=== PATIENT | male | born 1955 | race Caucasian/White ===

== ENCOUNTER 2022-10-06 15:01 | Inpatient (IN) | payer MEDICARE ==
[~2022-10-06] VITALS: Ht 177.8 cm; Wt 78.2 kg
[2022-10-06 15:51] LABS: BASOPHILS % (AUTO) 0.4 % (0.0-5.0); EOSINOPHILS % (AUTO) 0.2 % (0.0-8.0); HEMATOCRIT 26.9 % (42-54); LYMPHOCYTES % (AUTO) 2.8 % (21.0-51.0); MEAN CORPUSCULAR HEMOGLOBIN 33.1 pg (27.0-33.0); MEAN CORPUSCULAR VOLUME 103.5 fL (79-99); MONOCYTES % (AUTO) 7.7 % (3.0-13.0); NEUTROPHILS % (AUTO) 88.3 % (40.0-77.0); PLATELET COUNT (AUTO) 261 K/uL (130-400); RED CELL DISTRIBUTION WIDTH 23.6 % (11.0-15.5); WHITE BLOOD COUNT (AUTO) 13.7 K/uL (4.8-10.8)
[2022-10-06 16:09] LABS: CREATININE 1.9 mg/dL (0.5-1.5); POTASSIUM 5.8 mmol/L (3.5-5.1)
[2022-10-06 16:16] LABS: ALBUMIN 1.7 g/dL (3.5-5.0); TOTAL PROTEIN, SERUM 6.4 g/dL (6.0-8.3)
[2022-10-06] MEDS ORDERED: NA ZIRCON CYCLOSIL(LOKELMA 10GM) PO ONE (18:00)
[2022-10-06] MEDS ORDERED: PHARMACY COMMUNICATION MISC SCH (18:00)
[2022-10-06] MEDS ORDERED: CALCIUM GLUC 1GM/10ML VIAL IV SCH (18:00)
[2022-10-06] MEDS ORDERED: ONDANSETRON 4MG INJ IVP PRN (18:00)
[2022-10-06] MEDS ORDERED: THIAMINE HCL 100 MG/ML 2ML VIAL IVP SCH (18:30)
[2022-10-06] MEDS ORDERED: COMPOUND PO MISCELLANEOUS 1 EACH MISC MISC PRN (18:30)
[2022-10-06] MEDS: MEROPENEM 1 GM VIAL IVP SCH (18:32)
[2022-10-06] MEDS: 0.9%NACL 1000ML 1,000 ML IV SCH (18:33)
[2022-10-06 18:36] LABS: INR 1.32 (0.85-1.15); PROTHROMBIN TIME 14.2 SEC (9.6-11.6)
[2022-10-06 18:37] LABS: PARTIAL THROMBOPLASTIN TIME 34.5 SEC (26.3-35.5)
[2022-10-06] MEDS: VANCOMYCIN 250MG/5ML ORAL SOLUTION 40ML PO SCH ×2 (18:38)
[2022-10-06 18:44] LABS: CRP QUANTITATIVE 129.9 mg/L (0.00-9.0)
[2022-10-06 20:25] LABS: MAGNESIUM 2.3 mg/dL (1.80-2.40); PHOSPHORUS 6.3 mg/dL (2.5-4.9)
[2022-10-06] MEDS: SUCRALFATE 1 GM TABLET PO SCH (21:51)
[2022-10-06 22:01] LABS: APPEARANCE,URINE SL CLOUDY (CLEAR); BILIRUBIN,URINE MODERATE mg/dL (NEGATIVE); COLOR,URINE AMBER (YELLOW); GLUCOSE, URINE (UA) NEGATIVE (NEGATIVE); KETONES,URINE 5 mg/dL (NEGATIVE); LEUKOCYTE ESTERASE ,URINE NEGATIVE Leu/uL (NEGATIVE); NITRATE,URINE POSITIVE (NEGATIVE); OCCULT BLOOD,URINE NEGATIVE (NEGATIVE); PH,URINE 5.5 (5.0-8.0); PROTEIN,URINE TRACE mg/dL (NEGATIVE); UROBILINOGEN,URINE 0.2 mg/dL (0.2-1.0)
[2022-10-06 22:03] LABS: CREATININE,URINE RANDOM 255 mg/dL (30-135); SODIUM,URINE RANDOM < 14 mmol/l (40-220)
[2022-10-06 22:08] LABS: BACTERIA,URINE RARE /HPF (None Seen); MUCUS,URINE RARE LPF (None Seen); SQUAMOUS EPITHELIAL CELL,UR RARE /HPF (0-2)
[2022-10-06 22:27] VITALS: BP 93/61
[2022-10-06 22:41] LABS: POTASSIUM 5.8 mmol/L (3.5-5.1)
[2022-10-06] MEDS ORDERED: LORA10TA60 PO (23:06)
[2022-10-06] MEDS ORDERED: METO-408 PO (23:06)
[2022-10-06] MEDS ORDERED: AMYL1CAP63 PO (23:06)
[2022-10-06] MEDS ORDERED: PSYL0.4C2 PO (23:11)
[2022-10-06] MEDS ORDERED: ESCI20TA38 PO (23:11)
[2022-10-06] MEDS ORDERED: APIX5TAB PO (23:11)
[2022-10-06] MEDS ORDERED: MORP100S6 PO (23:11)
[2022-10-06] MEDS ORDERED: CEFT2VIA12 IVPB (23:15)
[2022-10-06] MEDS ORDERED: MORP15TA9 PO (23:15)
[2022-10-06] MEDS ORDERED: VANC125C6 PO (23:15)
[2022-10-07] MEDS: VANCOMYCIN 250MG/5ML ORAL SOLUTION 40ML PO SCH ×8 (00:57→16:57)
[2022-10-07 03:14] VITALS: BP 94/65
[2022-10-07 05:13] LABS: BASOPHILS % (AUTO) 0.4 % (0.0-5.0); EOSINOPHILS % (AUTO) 0.5 % (0.0-8.0); LYMPHOCYTES % (AUTO) 2.8 % (21.0-51.0); MEAN CORPUSCULAR HEMOGLOBIN 33.8 pg (27.0-33.0); MEAN CORPUSCULAR HGB CONC 32.1 g/dL (32.0-36.0); MEAN CORPUSCULAR VOLUME 105.3 fL (79-99); NEUTROPHILS % (AUTO) 87.5 % (40.0-77.0); PLATELET COUNT (AUTO) 224 K/uL (130-400); RED BLOOD CELL COUNT(AUTO) 2.28 MIL/uL (4.50-6.20); RED CELL DISTRIBUTION WIDTH 23.7 % (11.0-15.5); WHITE BLOOD COUNT (AUTO) 15.5 K/uL (4.8-10.8)
[2022-10-07 05:28] LABS: ALANINE AMINOTRANSFERASE 42 U/L (12-78); ALBUMIN 1.7 g/dL (3.5-5.0); ASPARTATE AMINOTRANSFERASE 98 U/L (10-37); CARBON DIOXIDE 25 mmol/L (21-32); CHLORIDE 102 mmol/L (101-111); CREATININE 2.1 mg/dL (0.5-1.5); GLOMERULAR FILTR. RATE CALC 34 mL/min (>60); GLUCOSE,RANDOM 93 mg/dL (70-105); SODIUM SERUM 134 mmol/L (136-145); TOTAL PROTEIN, SERUM 6.1 g/dL (6.0-8.3); UREA NITROGEN, BLOOD 34 mg/dL (7-18)
[2022-10-07] MEDS: MEROPENEM 1 GM VIAL IVP SCH ×2 (05:36→16:57)
[2022-10-07] MEDS: SUCRALFATE 1 GM TABLET PO SCH ×4 (05:36→20:45)
[2022-10-07] MEDS: 0.9%NACL 1000ML 1,000 ML IV SCH (05:37)
[2022-10-07 05:46] LABS: AMMONIA < 10 umol/L (11-32)
[2022-10-07 05:50] LABS: POTASSIUM 6.3 mmol/L (3.5-5.1)
[2022-10-07] MEDS ORDERED: CALCIUM GLUC 1GM/10ML VIAL IV SCH (06:00)
[2022-10-07] MEDS ORDERED: NA ZIRCON CYCLOSIL(LOKELMA 10GM) PO SCH (06:00)
[2022-10-07] MEDS ORDERED: SODIUM BICARB 50MEQ 50ML VIAL IV SCH (07:13)
[2022-10-07] MEDS ORDERED: INSULIN HUMULIN R 100 UNIT/ML 3ML IV SCH (07:13)
[2022-10-07] MEDS ORDERED: DEXTROSE 50%-WATER 50 ML DISP.SYRIN IV SCH (07:14)
[2022-10-07 07:30] VITALS: BP 98/65
[2022-10-07] MEDS ORDERED: CALCIUM GLUC 1 GM/NS 50ML IV PRN ×2 (07:30)
[2022-10-07] MEDS: METOPROLOL SUCCINATE 25 MG TAB.SR.24H PO SCH ×3 (07:52→08:37)
[2022-10-07] MEDS: LIPASE/PROTEASE/AMYLASE 5000/17000/24000 PO SCH ×3 (07:59→16:56)
[2022-10-07] MEDS: POLYETHYLENE GLYCOL 3350 17 GM POWD.PACK PO SCH (08:02)
[2022-10-07] MEDS: PANTOPRAZOLE 40 MG/VIAL IVP SCH (08:02)
[2022-10-07 11:30] VITALS: BP 74/54
[2022-10-07] MEDS: MIDODRINE HCL 5 MG TABLET PO SCH ×2 (14:35→20:44)
[2022-10-07 15:30] VITALS: BP 83/50
[2022-10-07 16:56] LABS: CREATININE,URINE RANDOM 179 mg/dL (30-135); SODIUM,URINE RANDOM < 14 mmol/l (40-220)
[2022-10-07] MEDS: HEPARIN 5,000 UNIT VIAL SQ SCH (19:01)
[2022-10-07 21:12] VITALS: BP 78/50
[2022-10-08 00:12] VITALS: BP 76/47
[2022-10-08] MEDS: VANCOMYCIN 250MG/5ML ORAL SOLUTION 40ML PO SCH ×4 (00:16→06:50)
[2022-10-08] MEDS: HEPARIN 5,000 UNIT VIAL SQ SCH ×3 (00:57→16:50)
[2022-10-08 04:08] VITALS: BP 72/44
[2022-10-08 05:27] LABS: BASOPHILS % (AUTO) 0.6 % (0.0-5.0); EOSINOPHILS % (AUTO) 3.7 % (0.0-8.0); HEMATOCRIT 22.5 % (42-54); LYMPHOCYTES % (AUTO) 4.9 % (21.0-51.0); MEAN CORPUSCULAR HEMOGLOBIN 33.3 pg (27.0-33.0); MEAN CORPUSCULAR HGB CONC 33.3 g/dL (32.0-36.0); MONOCYTES % (AUTO) 10.2 % (3.0-13.0); NEUTROPHILS % (AUTO) 80.1 % (40.0-77.0); PLATELET COUNT (AUTO) 189 K/uL (130-400); RED BLOOD CELL COUNT(AUTO) 2.25 MIL/uL (4.50-6.20); RED CELL DISTRIBUTION WIDTH 23.9 % (11.0-15.5); WHITE BLOOD COUNT (AUTO) 7.8 K/uL (4.8-10.8)
[2022-10-08 05:44] LABS: CREATININE 2.2 mg/dL (0.5-1.5); PHOSPHORUS 3.8 mg/dL (2.5-4.9); POTASSIUM 5.7 mmol/L (3.5-5.1)
[2022-10-08] MEDS ORDERED: 0.9% NACL 500ML IV.SOLN 500 ML IV ONE ×2 (05:46→06:00)
[2022-10-08 05:55] LABS: % IRON SATURATION 56.1 % (30-44)
[2022-10-08] MEDS ORDERED: MIDODRINE HCL 5 MG TABLET PO SCH (06:00)
[2022-10-08] MEDS: SUCRALFATE 1 GM TABLET PO SCH ×4 (06:47→22:07)
[2022-10-08] MEDS: MEROPENEM 1 GM VIAL IVP SCH ×2 (06:47→17:37)
[2022-10-08] MEDS ORDERED: KAYEXALATE 15GM/60ML ONE (06:59)
[2022-10-08] MEDS ORDERED: KAYEXALATE 15GM/60ML PO SCH (07:00)
[2022-10-08] MEDS ORDERED: 0.9%NACL 1000ML 1,000 ML IV SCH (07:00)
[2022-10-08 08:00] VITALS: BP 87/60
[2022-10-08] MEDS: PANTOPRAZOLE 40 MG/VIAL IVP SCH (09:00)
[2022-10-08] MEDS: LIPASE/PROTEASE/AMYLASE 5000/17000/24000 PO SCH ×3 (09:00→16:49)
[2022-10-08] MEDS: POLYETHYLENE GLYCOL 3350 17 GM POWD.PACK PO SCH (09:00)
[2022-10-08] MEDS ORDERED: COMPOUND IV MISC 1 EACH IVSOLN MISC PRN (09:00)
[2022-10-08] MEDS: MIDODRINE HCL 5 MG TABLET PO SCH ×3 (09:01→22:07)
[2022-10-08] MEDS: OCTREOTIDE ACETATE 100 MCG/ML AMP SQ SCH ×3 (10:19→22:07)
[2022-10-08] MEDS: IRON SUCROSE COMPLEX 300 MG in 0.9% NACL 250ML 250 ML IV SCH (10:19)
[2022-10-08] MEDS: ALBUMIN (HUMAN) 25% 50 ML IV SCH ×3 (10:19→22:07)
[2022-10-08] MEDS ORDERED: LACTULOSE 20 GM/30 ML UDCUP PO PRN (10:30)
[2022-10-08 12:00] VITALS: BP 94/59
[2022-10-08] MEDS ORDERED: NA ZIRCON CYCLOSIL(LOKELMA 10GM) PO SCH (12:30)
[2022-10-08 16:00] VITALS: BP 81/45
[2022-10-08 21:20] VITALS: BP 79/48
[2022-10-09 00:30] VITALS: BP 88/58
[2022-10-09] MEDS: HEPARIN 5,000 UNIT VIAL SQ SCH ×3 (01:33→17:35)
[2022-10-09 05:02] VITALS: BP 106/69
[2022-10-09 05:30] LABS: BASOPHILS % (AUTO) 0.4 % (0.0-5.0); EOSINOPHILS % (AUTO) 3.4 % (0.0-8.0); HEMATOCRIT 22.2 % (42-54); LYMPHOCYTES % (AUTO) 3.5 % (21.0-51.0); MEAN CORPUSCULAR HEMOGLOBIN 33.6 pg (27.0-33.0); MEAN CORPUSCULAR HGB CONC 33.3 g/dL (32.0-36.0); MEAN CORPUSCULAR VOLUME 100.9 fL (79-99); MONOCYTES % (AUTO) 11.2 % (3.0-13.0); NEUTROPHILS % (AUTO) 80.9 % (40.0-77.0); PLATELET COUNT (AUTO) 182 K/uL (130-400); RED CELL DISTRIBUTION WIDTH 23.8 % (11.0-15.5); WHITE BLOOD COUNT (AUTO) 6.8 K/uL (4.8-10.8)
[2022-10-09 05:48] LABS: ALBUMIN 1.7 g/dL (3.5-5.0); CREATININE 1.8 mg/dL (0.5-1.5); MAGNESIUM 2.2 mg/dL (1.80-2.40); PHOSPHORUS 3.7 mg/dL (2.5-4.9); POTASSIUM 4.3 mmol/L (3.5-5.1); TOTAL PROTEIN, SERUM 5.2 g/dL (6.0-8.3)
[2022-10-09] MEDS: SUCRALFATE 1 GM TABLET PO SCH ×4 (06:13→20:19)
[2022-10-09] MEDS: MEROPENEM 1 GM VIAL IVP SCH ×2 (06:13→17:53)
[2022-10-09] MEDS: HYDROMORPHONE 0.5 MG SYG (0.5MG/0.5ML) IVP PRN ×2 (06:29→20:20)
[2022-10-09 08:00] VITALS: BP 90/64
[2022-10-09] MEDS: POLYETHYLENE GLYCOL 3350 17 GM POWD.PACK PO SCH (08:39)
[2022-10-09] MEDS: PANTOPRAZOLE 40 MG/VIAL IVP SCH (08:39)
[2022-10-09] MEDS: IRON SUCROSE COMPLEX 300 MG in 0.9% NACL 250ML 250 ML IV SCH (08:40)
[2022-10-09] MEDS: MIDODRINE HCL 5 MG TABLET PO SCH ×3 (08:40→20:19)
[2022-10-09] MEDS: LIPASE/PROTEASE/AMYLASE 5000/17000/24000 PO SCH ×3 (08:40→17:33)
[2022-10-09] MEDS: OCTREOTIDE ACETATE 100 MCG/ML AMP SQ SCH ×3 (08:40→20:19)
[2022-10-09] MEDS: ALBUMIN (HUMAN) 25% 50 ML IV SCH ×3 (08:41→20:19)
[2022-10-09 12:00] VITALS: BP 92/62
[2022-10-09 16:00] VITALS: BP 96/63
[2022-10-09] MEDS ORDERED: LIDOCAINE HCL-MPF 1% 2ML VIAL ONE (16:39)
[2022-10-09] MEDS ORDERED: ALBUMIN (HUMAN) 25% 50 ML IV STA (17:29)
[2022-10-09 21:09] VITALS: BP 99/64
[2022-10-10] VITALS (7 sets, daily range): BP systolic 92–112; BP diastolic 57–69
[2022-10-10] MEDS: HEPARIN 5,000 UNIT VIAL SQ SCH ×3 (01:00→17:15)
[2022-10-10] MEDS: HYDROMORPHONE 0.5 MG SYG (0.5MG/0.5ML) IVP PRN ×3 (02:37→17:15)
[2022-10-10] MEDS: SUCRALFATE 1 GM TABLET PO SCH ×4 (06:09→20:08)
[2022-10-10] MEDS: MEROPENEM 1 GM VIAL IVP SCH ×2 (06:09→17:14)
[2022-10-10 07:59] LABS: BASOPHILS % (AUTO) 0.8 % (0.0-5.0); EOSINOPHILS % (AUTO) 2.6 % (0.0-8.0); HEMATOCRIT 24.4 % (42-54); LYMPHOCYTES % (AUTO) 4.5 % (21.0-51.0); MEAN CORPUSCULAR HEMOGLOBIN 33.9 pg (27.0-33.0); MEAN CORPUSCULAR HGB CONC 33.6 g/dL (32.0-36.0); MEAN CORPUSCULAR VOLUME 100.8 fL (79-99); MONOCYTES % (AUTO) 11.7 % (3.0-13.0); PLATELET COUNT (AUTO) 186 K/uL (130-400); RED BLOOD CELL COUNT(AUTO) 2.42 MIL/uL (4.50-6.20); RED CELL DISTRIBUTION WIDTH 23.9 % (11.0-15.5); WHITE BLOOD COUNT (AUTO) 7.8 K/uL (4.8-10.8)
[2022-10-10 08:23] LABS: CREATININE 1.6 mg/dL (0.5-1.5); POTASSIUM 4.5 mmol/L (3.5-5.1); TOTAL PROTEIN, SERUM 5.1 g/dL (6.0-8.3)
[2022-10-10] MEDS: POLYETHYLENE GLYCOL 3350 17 GM POWD.PACK PO SCH (09:00)
[2022-10-10] MEDS: ALBUMIN (HUMAN) 25% 50 ML IV SCH (09:00)
[2022-10-10] MEDS: PANTOPRAZOLE 40 MG/VIAL IVP SCH (10:26)
[2022-10-10] MEDS: LIPASE/PROTEASE/AMYLASE 5000/17000/24000 PO SCH ×3 (10:27→17:14)
[2022-10-10] MEDS: OCTREOTIDE ACETATE 100 MCG/ML AMP SQ SCH ×3 (10:27→20:08)
[2022-10-10] MEDS: MIDODRINE HCL 5 MG TABLET PO SCH ×3 (10:27→20:08)
[2022-10-10] MEDS: IRON SUCROSE COMPLEX 300 MG in 0.9% NACL 250ML 250 ML IV SCH (10:28)
[2022-10-10] MEDS: HYDROMORPHONE 1 MG INJ IVP PRN (20:15)
[2022-10-11] VITALS (14 sets, daily range): BP systolic 94–118; BP diastolic 60–71
[2022-10-11] MEDS: HEPARIN 5,000 UNIT VIAL SQ SCH ×3 (00:32→17:00)
[2022-10-11] MEDS: MEROPENEM 1 GM VIAL IVP SCH ×2 (04:42→18:22)
[2022-10-11] MEDS: SUCRALFATE 1 GM TABLET PO SCH ×4 (04:44→19:48)
[2022-10-11 05:07] LABS: BASOPHILS % (AUTO) 0.6 % (0.0-5.0); HEMATOCRIT 27.1 % (42-54); LYMPHOCYTES % (AUTO) 6.1 % (21.0-51.0); MEAN CORPUSCULAR HEMOGLOBIN 34.6 pg (27.0-33.0); MEAN CORPUSCULAR HGB CONC 33.2 g/dL (32.0-36.0); MEAN CORPUSCULAR VOLUME 104.2 fL (79-99); MONOCYTES % (AUTO) 10.8 % (3.0-13.0); NEUTROPHILS % (AUTO) 78.7 % (40.0-77.0); PLATELET COUNT (AUTO) 216 K/uL (130-400); RED CELL DISTRIBUTION WIDTH 24.3 % (11.0-15.5); WHITE BLOOD COUNT (AUTO) 9.1 K/uL (4.8-10.8)
[2022-10-11 05:26] LABS: CREATININE 1.5 mg/dL (0.5-1.5); POTASSIUM 5.1 mmol/L (3.5-5.1); TOTAL PROTEIN, SERUM 5.6 g/dL (6.0-8.3)
[2022-10-11] MEDS: OCTREOTIDE ACETATE 100 MCG/ML AMP SQ SCH ×3 (09:00→19:48)
[2022-10-11] MEDS: POLYETHYLENE GLYCOL 3350 17 GM POWD.PACK PO SCH (09:00)
[2022-10-11] MEDS: MIDODRINE HCL 5 MG TABLET PO SCH ×3 (09:26→19:48)
[2022-10-11] MEDS: HYDROMORPHONE 1 MG INJ IVP PRN ×2 (09:26→18:22)
[2022-10-11] MEDS: PANTOPRAZOLE 40 MG/VIAL IVP SCH (09:26)
[2022-10-11] MEDS ORDERED: LIDOCAINE HCL 400MG/20ML VIAL ONE (14:52)
[2022-10-11] MEDS ORDERED: MIDAZOLAM HCL 1 MG/ML 2ML VIAL ONE (15:05)
[2022-10-11] MEDS ORDERED: FENTANYL CITRATE PF 50 MCG/1 ML 2ML VIAL ONE (15:06)
[2022-10-11] MEDS: LIPASE/PROTEASE/AMYLASE 5000/17000/24000 PO SCH (17:00)
[2022-10-12] MEDS: HEPARIN 5,000 UNIT VIAL SQ SCH ×3 (00:13→16:17)
[2022-10-12] MEDS: HYDROMORPHONE 1 MG INJ IVP PRN ×2 (02:47→15:01)
[2022-10-12 03:52] VITALS: BP 105/59
[2022-10-12] MEDS: SUCRALFATE 1 GM TABLET PO SCH ×3 (04:58→16:16)
[2022-10-12] MEDS: MEROPENEM 1 GM VIAL IVP SCH (05:00)
[2022-10-12 08:00] VITALS: BP 107/67
[2022-10-12] MEDS: OCTREOTIDE ACETATE 100 MCG/ML AMP SQ SCH ×2 (10:24→15:02)
[2022-10-12] MEDS: PANTOPRAZOLE 40 MG/VIAL IVP SCH (10:24)
[2022-10-12] MEDS: POLYETHYLENE GLYCOL 3350 17 GM POWD.PACK PO SCH (10:24)
[2022-10-12] MEDS: MIDODRINE HCL 5 MG TABLET PO SCH ×2 (10:24→15:01)
[2022-10-12] MEDS: LIPASE/PROTEASE/AMYLASE 5000/17000/24000 PO SCH ×3 (10:30→16:16)
[2022-10-12 12:00] VITALS: BP 101/69
[2022-10-12] MEDS ORDERED: HEPARIN PF LOCK 500 UNIT/5ML IV SCH (15:30)
[2022-10-12 19:45] VITALS: BP 113/71
== END 2022-10-12 20:00 | disposition hospice, home (50) | DRG 682 ==
LOC: EDH 15:01 → EDHIP 19:20 → 4DH 21:26
PROVIDERS: ADMIT Hospitalist; ATTEND Hospitalist
PROC: 0W9G3ZZ Drainage of Peritoneal Cavity, Percutaneous Approach (ICD-10-PCS; 2022-10-09)
PROC: 0WHG33Z Insertion of Infusion Device into Peritoneal Cavity, Percutaneous Approach (ICD-10-PCS; principal; 2022-10-11)
DX: N17.9 Acute kidney failure, unspecified (principal); E43 Unspecified severe protein-calorie malnutrition; G92.8 Other toxic encephalopathy; C25.9 Malignant neoplasm of pancreas, unspecified; R18.8 Other ascites; Z20.822 Contact with and (suspected) exposure to COVID-19; E87.5 Hyperkalemia; D63.8 Anemia in other chronic diseases classified elsewhere; I48.91 Unspecified atrial fibrillation; K86.89 Other specified diseases of pancreas; I12.9 Hypertensive chronic kidney disease with stage 1 through stage 4 chronic kidney disease, or unspecified chronic kidney disease; I25.10 Atherosclerotic heart disease of native coronary artery without angina pectoris; I95.89 Other hypotension; Z66 Do not resuscitate; K12.1 Other forms of stomatitis; N18.9 Chronic kidney disease, unspecified; R62.7 Adult failure to thrive; T45.1X5A Adverse effect of antineoplastic and immunosuppressive drugs, initial encounter; Z51.5 Encounter for palliative care; Z90.411 Acquired partial absence of pancreas; Z79.01 Long term (current) use of anticoagulants; Z79.899 Other long term (current) drug therapy; Z85.07 Personal history of malignant neoplasm of pancreas
CPT/HCPCS: 36415; 49418; 70450; 71045; 74176; 75989; 80048; 80053; 81001; 82140; 82533; 82570; 83540; 83550; 83605; 83735; 84100; 84132; 84145; 84300; 84484; 84540; 84550; 85025; 85610; 85651; 85730; 86140; 87040; 87088; 87635; 87804; 92610; 93005; 99156; 99157; C9113; G0378; J0610; J1170; J1642; J1644; J1756; J1815; J2185; J2250; J2354; J2405; J3010; J3370; J3411; J3490; J7030; J7040; J7050; J7070; P9047